=== PATIENT | female | born 1970 | race Caucasian/White ===

== ENCOUNTER 2017-04-05 14:04 | Emergency (ER) | payer SELFPAY ==
[~2017-04-05] VITALS: Ht 157.5 cm; Wt 57.6 kg
--- NOTE | 2017-04-05 14:21 | NUR ---
A/OX4, AMBULATORY TO ED BED 17, PT STS SHE HAD A FALL WEDNESDAY, WITH KO. SHE IS C/O DIZZINESS, NAUSEA, HEAD PRESSURE. VSS NAD RR EVEN AND UNLABORED, SKIN IS WARM AND NON DIAPHORETIC. PENDING ER MD EVALUATION
--- NOTE | 2017-04-05 15:30 | NUR ---
URINE SENT TO LAB
[2017-04-05] MEDS ORDERED: ACETAMINOPHEN 325 MG TABLET ONE (15:43)
[2017-04-05] MEDS ORDERED: LORAZEPAM 1 MG TABLET ONE (15:43)
[2017-04-05 15:46] LABS: BASOPHILS # (AUTO) 0.1 /CMM (0.0-0.2); BASOPHILS % (AUTO) 1.1 % (0.0-2.0); EOSINOPHILS % (AUTO) 0.5 % (0.0-6.0); HEMATOCRIT 39 % (33-45); HEMOGLOBIN 13.3 g/dL (11.5-14.8); LYMPHOCYTES # (AUTO) 2.6 /CMM (0.8-4.8); LYMPHOCYTES % (AUTO) 31.8 % (20.0-44.0); MEAN CORPUSCULAR HEMOGLOBIN 31 PG (26.0-33.0); MEAN CORPUSCULAR HGB CONC 34 g/dl (31.0-36.0); MEAN CORPUSCULAR VOLUME 90 fL (82-100); MONOCYTES # (AUTO) 0.4 /CMM (0.1-1.30); MONOCYTES % (AUTO) 4.9 % (2.0-12.0); NEUTROPHILS % (AUTO) 61.7 % (43.0-81.0); PLATELET COUNT (AUTO) 283 /CMM (150-450); RDW COEFFICIENT OF VARIATION 12.8 (11.5-15.0); RED BLOOD CELL COUNT(AUTO) 4.34 MIL/uL (4.0-5.2); WHITE BLOOD COUNT (AUTO) 8.1 K/uL (4.3-11.0)
[2017-04-05 15:58] LABS: CALCIUM, SERUM 9.4 mg/dL (8.5-10.1); CARBON DIOXIDE 27 mmol/L (21-32); CHLORIDE 104 mmol/L (98-107); CREATININE 0.9 mg/dL (0.6-1.3); GLUCOSE 90 mg/dL (74-106); POTASSIUM 3.7 mmol/L (3.5-5.1); SODIUM SERUM 139 mmol/L (136-145); UREA NITROGEN, BLOOD 8 mg/dL (7-18)
[2017-04-05] MEDS ORDERED: LORAZEPAM 1 MG TABLET PO ONE (16:00)
[2017-04-05] MEDS ORDERED: ACETAMINOPHEN 325 MG TABLET PO ONE (16:00)
[2017-04-05 16:03] LABS: APPEARANCE,URINE Clear (CLEAR); BILIRUBIN,URINE Negative (NEGATIVE); BLOOD, URINE Trace-intact Ery/uL (NEGATIVE); COLOR,URINE Light yellow (YELLOW); KETONES,URINE Negative (NEGATIVE); LEUKOCYTE ESTERASE ,URINE Negative (NEGATIVE); NITRITE, URINE Negative (NEGATIVE); PROTEIN,URINE Negative (NEGATIVE); UGLUCOSE Negative (NEGATIVE); UROBILINOGEN,URINE 0.2 EU/dL (0.2)
[2017-04-05 16:07] LABS: TROPONIN I < 0.017 ng/mL (0.00-0.056)
[2017-04-05 16:14] LABS: BACTERIA,URINE Rare /HPF (None Seen); SQUAMOUS EPITHELIAL CELL,UR Few /HPF (None Seen); WBC,URINE 0-3 /HPF (0-3)
--- NOTE | 2017-04-05 16:44 | NUR ---
PT BACK TO CT SCAN
[2017-04-05 18:58] VITALS: BP 128/74
--- NOTE | 2017-04-05 18:58 | NUR ---
Patient discharged to home in stable condition. Written and verbal after care instructions given. Patient verbalizes understanding of instruction.
== END 2017-04-05 18:59 | disposition home or self-care (01) ==
LOC: ER 14:08
DX: S00.33XA Contusion of nose, initial encounter (principal); R55 Syncope and collapse; W18.00XA Striking against unspecified object with subsequent fall, initial encounter; Y93.89 Activity, other specified; Y92.89 Other specified places as the place of occurrence of the external cause; Y99.8 Other external cause status
CPT/HCPCS: 36415; 70450; 71010; 80048; 81001; 84484; 85025; 93005; 99285; A4606; Z7610; 81000-TC